=== PATIENT | female | born 2000 | race Caucasian/White ===

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

== ENCOUNTER 2020-01-03 11:25 | Emergency (ER) | payer OTHER ==
[2020-01-03 11:43] VITALS: TEMP 97.5; BMI 27.9
--- NOTE | 2020-01-03 11:58 | PDOC ---
History of Present Illness - General History Source: Patient Exam Limitations: No Limitations - History of Present Illness Initial Comments: 01/03/20 11:55 19-year-old female G1, P0 5 weeks past medical history asthma and anemia presented to the ED complaining of vaginal spotting and abdominal cramps since yesterday. Patient states that last night she began feeling abdominal cramps and this morning she awoke to some vaginal spotting without clots. Patient states bleeding is minimal but the cramps have still persisted although they have lessened since they began and decreased in frequency. Patient did not take any medicine patient needs referral to [facility] for follow-up. LMP November 25. Pt otherwise denies: fevers, chills, syncope, lightheadedness, dizziness, headaches, neck pain, chest pain, shortness of breath, palpitations, back pain, abdominal pain, nausea, vomiting, diarrhea, constipation, dysuria. <Justin Muir - Last Filed: 01/03/20 21:23> <Smita Tomas - Last Filed: 01/06/20 18:11> - General Chief Complaint: Vaginal Bleeding Stated Complaint: 5WKS/ BLEEDING Time Seen by Provider: 01/03/20 11:47 Past History - Medical History Asthma: Yes COPD: No - Psycho-Social/Smoking History Smoking History: Never smoked - Substance Abuse Hx (Audit-C & DAST Scrn) How often the patient has a drink containing alcohol: Never Score: In Men: 4 or > Positive; In Women: 3 or > Positive: 0 Screen Result (Pos requires Nsg. Audit-10AR): Negative In the last yr the pt used illegal drug/Rx for NonMed reason: No Score: Yes response is considered Positive: 0 Screen Result (Positive result requires Nsg. DAST-10): Negative <Justin Muir - Last Filed: 01/03/20 21:23> <Smita Tomas - Last Filed: 01/06/20 18:11> - Medical History Allergies/Adverse Reactions: Allergies Allergy/AdvReac Type Severity Reaction Status Date / Time No Known Allergies Allergy Verified 01/03/20 11:40 Home Medications: Ambulatory Orders Benzonatate [Tessalon Pearls -] 100 mg PO Q8H PRN #12 capsule 08/07/19 Ipratropium [place] 2 spray NS BID PRN 5 Days #1 spray 08/07/19 Methocarbamol [Robaxin -] 500 mg PO BID PRN #14 tablet 08/07/19 Naproxen 500 mg PO BID PRN #14 tablet 08/07/19 *Physical Exam - Vital Signs Last Vital Signs Temp Pulse Resp BP Pulse Ox 97.5 F L 53 L 17 108/66 100 01/03/20 11:40 01/03/20 11:40 01/03/20 11:40 01/03/20 11:40 01/03/20 11:40 - Physical Exam 01/03/20 11:56 Gen: AAOx 3, no acute distress, comfortable, no signs of respiratory distress HENT: atraumatic, normocephalic with no laceration or contusion. Nasal mucosa without erythema. Oropharynx without erythema or exudates. Mucous membranes moist. EYES: PERRL, EOM intact, conjunctiva pink NECK: supple; trachea midline; no JVD, no lymphadenopathy, or thyromegaly CV: RRR no murmurs, gallops, or rubs. CHEST: CTA b/l no wheezing, rales or rhonchi ABD: +BS/ND. no TTP; soft, no rebound, no guarding PELVIC: No external lesions, vaginal vault: - white discharge, no blood, - midline tenderness elicited with manual exam, no CMT or adnexal tenderness; os unable to be visualized EXTREMITY: no cyanosis or erythema. 2+ dorsalis pedis, posterior tibial, and radial pulse. No pedal edema; no calf swelling or tenderness SKIN: no rash, warm and dry, no diaphoresis HEME: no purpura or ecchymosis NEURO: normal speech, CN II-XII intact, sensation intact, normal gait, no cerebellar deficits MS: 5/5 strength in all extremities, FROM intact in all extremities. <Justin Muir - Last Filed: 01/03/20 21:23> - Vital Signs Last Vital Signs Temp Pulse Resp BP Pulse Ox 97.5 F L 58 L 17 113/72 100 01/03/20 11:40 01/03/20 13:55 01/03/20 13:55 01/03/20 13:55 01/03/20 13:55 <Smita Tomas - Last Filed: 01/06/20 18:11> ED Treatment Course - LABORATORY CBC & Chemistry Diagram: 01/03/20 11:55 01/03/20 11:55 - RADIOLOGY Radiology Studies Ordered: Category Date Time Status TRANSVAGINAL US PREG [US] Stat Ultrasound 01/03/20 11:54 Ordered <Justin Muir - Last Filed: 01/03/20 21:23> - LABORATORY CBC & Chemistry Diagram: 01/03/20 11:55 01/03/20 11:55 - ADDITIONAL ORDERS Additional order review: 01/03/20 11:55 Urine Culture - Final Urine - Urine Clean Catch NO GROWTH OBTAINED 01/03/20 11:55 RBC 4.38 MCV 90.9 MCHC 32.9 RDW 13.0 MPV 8.8 Neutrophils % 73.3 Lymphocytes % 21.0 Monocytes % 5.0 Eosinophils % 0.3 Basophils % 0.4 <Smita Tomas - Last Filed: 01/06/20 18:11> Medical Decision Making - Medical Decision Making 01/03/20 11:57 19-year-old female past medical history asthma anemia 5 weeks presenting abdominal cramping and vaginal bleeding Vital signs Will obtain labs including beta-hCG type and screen UA UC GC Will obtain transvaginal ultrasound Will reassess based on results and administer RhoGam if necessary Ultrasound shows probable early IUP clinical and laboratory correlation follow- up ultrasound recommended. Beta-hCG 10,411 RH + Patient not anemic however thrombocytopenia noted, patient states this is normal for her, nothing to do at this time Rest of labs noncontributory UA shows no sign a UTI Will follow-up GC results when they are back Patient to follow-up with [facility] without fail within 5 to 7 days or return to the ED for repeat ultrasound and beta-hCG to confirm intrauterine and increasing beta-hCG. Patient is safe and stable for discharge strict return precautions given as well as signs and symptoms requiring immediate return to the ED. Patient understands the need to follow-up with [facility] or [facility] without fail Supportive care instructions explained and given to pt. Reasons to return emergently to ER explained and given. Importance of follow up with PMD and other specialists as indicated stressed to pt. Pt verbalized understanding of instructions. Pt to follow up with PMD in 2 days. <Justin Muir - Last Filed: 01/03/20 21:23> - Medical Decision Making The patient was seen and evaluated in conjunction with midlevel provider under my direct supervision, ancillary studies were reviewed. I agree with the plan as outlined with BRITTNEY Muir. HPI, workup/dispo as outlined. VS reviewed, wnl. anticipate discharge, pcp followup, return precautions 01/06/20 18:11 <Smita Tomas - Last Filed: 01/06/20 18:11> Discharge - Discharge Information Problems reviewed: Yes <Justin Muir - Last Filed: 01/03/20 21:23> <Smita Tomas - Last Filed: 01/06/20 18:11> - Discharge Information Clinical Impression/Diagnosis: with 5 completed weeks gestation Condition: Stable Disposition: HOME - Follow up/Referral Referrals: Connor Hudson MD [Staff Physician] - - Patient Discharge Instructions Patient Printed Discharge Instructions: DI for Vaginal Bleeding During Additional Instructions: YOU MUST FOLLOW UP WITH OBGYN WITHIN 5 - 7 DAYS - Post Discharge Activity Work/Back to School Note: Back to Work
[2020-01-03 12:17] LABS: BASO % 0.4 % (0-2.0); EOS % 0.3 % (0-4.5); HEMATOCRIT 39.8 % (32.4-45.2); HEMOGLOBIN 13.1 GM/dL (10.7-15.3); MCH 29.9 pg (25.7-33.7); MCHC 32.9 g/dl (32.0-36.0); MEAN CELL VOLUME 90.9 fl (80-96); MEAN PLT VOLUME 8.8 fl (7.5-11.1); NEUT % 73.3 % (42.8-82.8); PLATELET COUNT 112 K/MM3 (134-434); RBC 4.38 M/mm3 (3.60-5.2); WHITE BLOOD COUNT 6.8 K/mm3 (4.0-10.0)
[2020-01-03 12:25] LABS: INR 1.03 (0.83-1.09); PROTHROMBIN TIME (PATIENT) 12.2 SEC (9.7-13.0)
[2020-01-03 12:28] LABS: ACTIVATED PTT 31.9 SECONDS (25.2-36.5)
[2020-01-03 12:52] LABS: ALBUMIN 4.1 g/dl (3.4-5.0); BILIRUBIN,TOTAL 0.5 mg/dL (0.2-1); BLOOD UREA NITROGEN 7.2 mg/dL (7-18); CALCIUM 9.2 mg/dL (8.5-10.1); CREATININE 0.6 mg/dL (0.55-1.3); POTASSIUM 4.3 mmol/L (3.5-5.1); TOT PROT 7.8 g/dl (6.4-8.2)
[2020-01-03 13:07] LABS: PH,URINE >= 9.0 (5.0-8.0); URINE APPEARANCE CLEAR; URINE BILIRUBIN NEGATIVE (NEGATIVE); URINE COLOR YELLOW; URINE GLUCOSE (UA) NEGATIVE (NEGATIVE); URINE KETONE TRACE (NEGATIVE); URINE LEUK ESTERASE NEGATIVE (NEGATIVE); URINE NITRITE NEGATIVE (NEGATIVE); URINE PROTEIN NEGATIVE (NEGATIVE)
[2020-01-03 14:03] VITALS: BP 113/72; PULSE 58
== END 2020-01-03 14:02 | disposition home or self-care (01) ==
LOC: JER 11:25
DX: O26.851 Spotting complicating pregnancy, first trimester (principal)
CPT/HCPCS: 36415; 76817-TC; 80053; 81003; 84702; 85025; 85610; 85730; 86850; 86900; 86901; 87086; 87491; 87591; 99284-25

== ENCOUNTER → 2020-03-13 | Emergency (ER) | payer OTHER ==
[~2020-03-13] MED LIST: ACETAMINOPHEN 325 MG TABLET (FP) ONE; ACETAMINOPHEN 325 MG TABLET (FP) PO ONE
--- NOTE | 2020-03-13 18:08 | PDOC ---
Rapid Medical Evaluation Time Seen by Provider: 03/13/20 18:04 Medical Evaluation: Allergies Allergy/AdvReac Type Severity Reaction Status Date / Time No Known Allergies Allergy Verified 01/03/20 11:40 03/13/20 18:05 19 year old female pmhx asthma with lower back pain radiating down R leg. As well as burning on urination PE: TTP to R lumbar paravertebrals Plan: Tylenol UA UC Pt to precede to ED for further eval 03/13/20 18:07
[2020-03-13 18:10] VITALS: BP 117/70; PULSE 93; TEMP 98.2; BMI 28.1
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
== END ==
LOC: JER 17:57
DX: M79.604 Pain in right leg (principal)
CPT/HCPCS: 99283-25

== ENCOUNTER 2020-06-06 10:47 | Emergency (ER) | payer OTHER ==
[2020-06-06 10:54] VITALS: BMI 34.7
[2020-06-06] MEDS ORDERED: ALBUTEROL SO4 2.5/IPRATROPIUM 0.5 INH SOL 3 ML VIAL.NEB. NEB ONE ×4 (12:06→16:15)
[2020-06-06] MEDS ORDERED: DEXAMETHASONE LIQUID 0.5 MG/5 ML PO ONE (12:06)
[2020-06-06] MEDS ORDERED: DEXAMETHASONE SOD PHOSPHATE 10 MG/1 ML VIAL ONE (12:07)
[2020-06-06] MEDS ORDERED: ALBUTEROL SO4 0.083% IH SOL 2.5 MG/3 ML VIAL.NEB. NEB ONE (13:17)
[2020-06-06] MEDS ORDERED: ALBUTEROL SO4 HFA INHALER IH ONE ×3 (14:09→14:10)
[2020-06-06 15:44] VITALS: TEMP 98.1
[2020-06-06] MEDS ORDERED: MAGNESIUM SULF 50% (8.12 MEQ/2 ML-1 GM VIAL) IVPB ONE (15:54)
[2020-06-06] MEDS ORDERED: SODIUM CHLORIDE 1,000 ML IV STA (15:54)
[2020-06-06] MEDS ORDERED: MAGNESIUM SULFATE IN WATER 2 GM/50 ML IVPB IVPB ONE (15:54)
[2020-06-06 16:35] LABS: EOS % 0.1 % (0-4.5); HEMATOCRIT 31.4 % (32.4-45.2); HEMOGLOBIN 10.6 GM/dL (10.7-15.3); LYMPH % 3.7 % (8-40); MCH 31.5 pg (25.7-33.7); MCHC 33.7 g/dl (32.0-36.0); MEAN CELL VOLUME 93.3 fl (80-96); MEAN PLT VOLUME 7.7 fl (7.5-11.1); NEUT % 95.2 % (42.8-82.8); PLATELET COUNT 140 K/MM3 (134-434); RBC 3.37 M/mm3 (3.60-5.2); RDW 12.7 % (11.6-15.6); WHITE BLOOD COUNT 17.3 K/mm3 (4.0-10.0)
[2020-06-06 16:50] LABS: CALCIUM 8.5 mg/dL (8.5-10.1)
[2020-06-06 16:51] LABS: ALBUMIN 2.9 g/dl (3.4-5.0); BLOOD UREA NITROGEN 6.1 mg/dL (7-18)
[2020-06-06 16:54] LABS: CREATININE 0.4 mg/dL (0.55-1.3)
[2020-06-06 16:56] LABS: BILIRUBIN,TOTAL 0.2 mg/dL (0.2-1); TOT PROT 6.6 g/dl (6.4-8.2)
[2020-06-06 17:58] LABS: PLATELET ESTIMATE DECREASED
[2020-06-06 18:12] VITALS: BP 114/71; PULSE 99
[2020-06-06 19:16] LABS: URINE APPEARANCE CLEAR; URINE BILIRUBIN NEGATIVE (NEGATIVE); URINE COLOR YELLOW; URINE GLUCOSE (UA) 3+ (NEGATIVE); URINE KETONE 2+ (NEGATIVE); URINE LEUK ESTERASE NEGATIVE (NEGATIVE); URINE NITRITE NEGATIVE (NEGATIVE); URINE PROTEIN NEGATIVE (NEGATIVE); URINE UROBILINOGEN 0.2 mg/dL (0.2-1.0)
== END 2020-06-06 19:58 | disposition home or self-care (01) ==
LOC: JER 10:47
PROC: 3E0F7GC Introduction of Other Therapeutic Substance into Respiratory Tract, Via Natural or Artificial Opening (ICD-10-PCS; principal; 2020-06-06)
PROC: 3E0F7GC Introduction of Other Therapeutic Substance into Respiratory Tract, Via Natural or Artificial Opening (ICD-10-PCS; 2020-06-06)
PROC: 3E033GC Introduction of Other Therapeutic Substance into Peripheral Vein, Percutaneous Approach (ICD-10-PCS; 2020-06-06)
PROC: 3E0337Z Introduction of Electrolytic and Water Balance Substance into Peripheral Vein, Percutaneous Approach (ICD-10-PCS; 2020-06-06)
DX: O99.513 Diseases of the respiratory system complicating pregnancy, third trimester (principal); Z3A.27 27 weeks gestation of pregnancy
CPT/HCPCS: 36415; 71046-TC-FY; 80053; 81003; 82962; 85025; 99284-25; C9803; U0003

== ENCOUNTER → 2021-08-09 | Emergency (ER) | payer OTHER ==
[2021-08-09 12:46] VITALS: BP 117/76; PULSE 87; TEMP 98.1; BMI 40.4
== END ==
LOC: JERFT 12:36
DX: R11.0 Nausea (principal); M25.571 Pain in right ankle and joints of right foot
CPT/HCPCS: 99281-25

== ENCOUNTER 2021-10-15 13:10 | Emergency (ER) | payer OTHER ==
[2021-10-15 13:28] VITALS: BP 122/65; PULSE 94; TEMP 97.7; BMI 34.3
== END 2021-10-15 19:30 | disposition home or self-care (01) ==
LOC: JERFT 13:10
DX: S09.90XA Unspecified injury of head, initial encounter (principal); T74.11XA Adult physical abuse, confirmed, initial encounter; Y07.03 Male partner, perpetrator of maltreatment and neglect
CPT/HCPCS: 70450-TC; 70490-TC; 72125-TC; 73590-TC-RT-FY; 73610-TC-RT-FY; 73630-TC-RT-FY; 84703; 99285-25

== ENCOUNTER 2021-10-16 12:30 | Emergency (ER) | payer OTHER ==
[2021-10-16 13:04] VITALS: BMI 36.3
[2021-10-16] MEDS ORDERED: SODIUM CHLORIDE 0.9% 500 ML INFUS.BAG IV ONE (15:03)
[2021-10-16] MEDS ORDERED: KETOROLAC TROMETHAMINE 30 MG/1 ML VIAL IVPUSH ONE (15:03)
[2021-10-16] MEDS ORDERED: KETOROLAC TROMETHAMINE 30 MG/1 ML VIAL ONE (15:22)
[2021-10-16 17:26] VITALS: BP 122/66; PULSE 74; TEMP 98.4
== END 2021-10-16 19:53 | disposition home or self-care (01) ==
LOC: JER 12:30
PROC: 3E0333Z Introduction of Anti-inflammatory into Peripheral Vein, Percutaneous Approach (ICD-10-PCS; principal; 2021-10-16)
DX: R50.9 Fever, unspecified (principal); R05.1 Acute cough; R51.9 Headache, unspecified; J09.X2 Influenza due to identified novel influenza A virus with other respiratory manifestations
CPT/HCPCS: 0241U-QW; 71046-TC-FY; 99284-25

== ENCOUNTER 2022-03-11 18:30 | Emergency (ER) | payer OTHER ==
[2022-03-11 19:13] VITALS: BP 128/71; PULSE 75; RESP 18; TEMP 98.3; BMI 32.7
[2022-03-11] MEDS ORDERED: DEXAMETHASONE SOD PHOSPHATE 10 MG/1 ML VIAL PO ONE (20:27)
[2022-03-11] MEDS ORDERED: DEXAMETHASONE SOD PHOSPHATE 10 MG/1 ML VIAL ONE (20:55)
[2022-03-11] MEDS ORDERED: LIDOCAINE HCL 1%, 10 MG/ML (20ML VIAL) ONE (20:56)
== END 2022-03-11 22:48 | disposition home or self-care (01) ==
LOC: JERFT 18:30 → JER 18:30 → JERFT 22:48
DX: J06.9 Acute upper respiratory infection, unspecified (principal)
CPT/HCPCS: 0241U-QW; 36415; 87491; 87591; 99284-25; J1100

== ENCOUNTER 2022-03-26 21:31 | Emergency (ER) | payer OTHER ==
[2022-03-26 21:39] VITALS: BMI 32.7
[2022-03-26] MEDS ORDERED: ACETAMINOPHEN 500 MG TABLET (FP) PO ONE (23:04)
[2022-03-27] MEDS ORDERED: ACETAMINOPHEN 500 MG TABLET (FP) ONE (00:04)
[2022-03-27 01:53] VITALS: BP 103/70; PULSE 51; RESP 18; TEMP 97.6
[2022-03-27 02:38] LABS: BASO % 0.3 % (0-2.0); EOS % 0.9 % (0-4.5); HEMATOCRIT 39.5 % (32.4-45.2); HEMOGLOBIN 13.3 GM/dL (10.7-15.3); MCH 30.2 pg (25.7-33.7); MCHC 33.7 g/dl (32.0-36.0); MEAN CELL VOLUME 89.5 fl (80-96); MEAN PLT VOLUME 8.8 fl (7.5-11.1); MONO % 7.3 % (3.8-10.2); NEUT % 70.5 % (42.8-82.8); PLATELET COUNT 106 10^3/uL (134-434); RBC 4.41 M/mm3 (3.60-5.2); RDW 13.7 % (11.6-15.6); WHITE BLOOD COUNT 8.7 K/mm3 (4.0-10.0)
[2022-03-27 03:38] LABS: BLOOD UREA NITROGEN 9.3 mg/dL (7-18); CALCIUM 9.2 mg/dL (8.5-10.1); CREATININE 0.6 mg/dL (0.55-1.3)
[2022-03-27 03:53] LABS: EPI CELLS 12 /uL (0-25.1); HYALINE CASTS 5 /uL (0-3.1); PH,URINE 5.5 (5.0-8.0); URINE APPEARANCE Cloudy; URINE BACTERIA 157 /uL (0-1359); URINE BILIRUBIN Negative (NEGATIVE); URINE COLOR Orange; URINE GLUCOSE (UA) Negative (NEGATIVE); URINE KETONE 80 (NEGATIVE); URINE LEUK ESTERASE Moderate (NEGATIVE); URINE NITRITE Negative (NEGATIVE); URINE PROTEIN 100 (NEGATIVE); URINE RBC 5107 /uL (0-23.9); URINE WBC 583 /uL (0-25.8)
== END 2022-03-27 04:24 | disposition home or self-care (01) ==
LOC: JER 21:31
DX: N94.6 Dysmenorrhea, unspecified (principal)
CPT/HCPCS: 36415; 76830-TC; 80048; 81003; 84703; 85025; 99284-25

== ENCOUNTER 2022-04-15 20:33 | Emergency (ER) | payer OTHER ==
[2022-04-15 20:49] VITALS: BP 120/85; PULSE 69; RESP 17; TEMP 97.6; BMI 32.3
[2022-04-15] MEDS ORDERED: FLUORESCEIN NA 1 EA STRIP ONE (22:57)
[2022-04-15] MEDS ORDERED: TETRACAINE 0.5% OPHTH SOLN 2 ML BOTTLE ONE (22:58)
[2022-04-15] MEDS ORDERED: ERYTHROMYCIN 0.5% OPHTHALMIC OINTMENT 3.5 GM TUBE ONE (23:04)
[2022-04-15] MEDS ORDERED: ERYTHROMYCIN 0.5% OPHTHALMIC OINTMENT 3.5 GM TUBE OS ONE (23:38)
[2022-04-15] MEDS ORDERED: FLUORESCEIN NA 1 EA STRIP OS ONE (23:38)
[2022-04-15] MEDS ORDERED: TETRACAINE 0.5% HCL 0.6ML DROPPER.BOTTLE OS ONE (23:38)
== END 2022-04-15 23:47 | disposition home or self-care (01) ==
LOC: JERFT 20:33
DX: H10.32 Unspecified acute conjunctivitis, left eye (principal)
CPT/HCPCS: 99283-25

== ENCOUNTER 2022-06-29 00:38 | Emergency (ER) | payer OTHER ==
[2022-06-29 00:47] VITALS: BP 111/72; PULSE 65; RESP 18; TEMP 97.6; BMI 29.9
[2022-06-29 01:41] LABS: BASO % 0.3 % (0-2.0); EOS % 0.5 % (0-4.5); HEMATOCRIT 39.1 % (32.4-45.2); HEMOGLOBIN 12.8 GM/dL (10.7-15.3); LYMPH % 17.4 % (8-40); MCHC 32.9 g/dl (32.0-36.0); MEAN CELL VOLUME 91.4 fl (80-96); MEAN PLT VOLUME 8.5 fl (7.5-11.1); MONO % 6.2 % (3.8-10.2); NEUT % 75.6 % (42.8-82.8); PLATELET COUNT 131 10^3/uL (134-434); RBC 4.28 M/mm3 (3.60-5.2); RDW 13.4 % (11.6-15.6)
[2022-06-29 01:55] LABS: INR 1.21 (0.83-1.09)
[2022-06-29 01:58] LABS: ACTIVATED PTT 33.9 SECONDS (25.2-36.5)
[2022-06-29 02:01] LABS: ALBUMIN 3.8 g/dl (3.4-5.0); BLOOD UREA NITROGEN 9.5 mg/dL (7-18); CALCIUM 8.8 mg/dL (8.5-10.1)
[2022-06-29 02:05] LABS: CREATININE 0.5 mg/dL (0.55-1.3)
[2022-06-29 02:06] LABS: BILIRUBIN,TOTAL 0.4 mg/dL (0.2-1)
[2022-06-29 02:19] LABS: EPI CELLS 8 /uL (0-25.1); HYALINE CASTS 1 /uL (0-3.1); URINE APPEARANCE CLOUDY; URINE BACTERIA 93 /uL (0-1359); URINE BILIRUBIN NEGATIVE (NEGATIVE); URINE COLOR YELLOW; URINE GLUCOSE (UA) NEGATIVE (NEGATIVE); URINE KETONE 1+ (NEGATIVE); URINE LEUK ESTERASE NEGATIVE (NEGATIVE); URINE NITRITE NEGATIVE (NEGATIVE); URINE PROTEIN NEGATIVE (NEGATIVE); URINE RBC 921 /uL (0-23.9); URINE WBC 6 /uL (0-25.8)
== END 2022-06-29 03:22 | disposition home or self-care (01) ==
LOC: JER 00:38
DX: O46.91 Antepartum hemorrhage, unspecified, first trimester (principal); O20.0 Threatened abortion; Z3A.01 Less than 8 weeks gestation of pregnancy
CPT/HCPCS: 36415; 76817-TC; 80053; 81003; 84702; 84703; 85025; 85610; 85730; 86850; 86900; 86901; 87086; 99284-25